=== PATIENT | male | born 1935 | race Caucasian/White ===

== ENCOUNTER 2022-02-05 11:39 | Outpatient (REF) | payer MEDICARE, OTHER, SELFPAY ==
[2022-02-05 13:20] LABS: MANUAL DIFF FLAG NO
[2022-02-05 13:25] LABS: Basophils Absolute Auto 0.1 X10*3/uL (0.0-0.2); Basophils Percent Auto 0.7 % (0-2); Eosinophils Absolute Auto 0.2 X10*3/uL (0.0-0.4); Eosinophils Percent Auto 2.1 % (0-4); Hematocrit 43.3 % (42.0-52.0); Hemoglobin 13.9 g/dl (14.0-18.0); Imm Gran Abs Auto 0.04 X10*3/uL (0.00-0.03); Imm Gran Pct Auto 0.4 % (0.0-0.4); Lymphocytes Absolute Auto 1.2 X10*3/uL (1.2-4.9); Lymphocytes Percent Auto 13.1 % (20-40); Mean Corpuscular HGB Conc 32.1 g/dl (31.0-36.0); Mean Corpuscular Hemoglobin 29.6 pg (27.0-33.0); Mean Corpuscular Volume 92.3 fL (80.0-98.0); Mean Platelet Volume 10.3 fL (9.4-12.4); Monocytes Absolute Auto 0.6 X10*3/uL (0.1-1.2); Monocytes Percent Auto 6.9 % (2-11); Neutrophils Absolute Auto 6.9 x10*3/uL (2.0-8.3); Neutrophils Percent Auto 76.8 % (45-73); Platelet Count 191 X10*3/uL (160-400); Red Blood Count 4.69 X10*6/uL (4.60-5.80); Red Cell Distribution Width 13.7 % (11.0-16.0)
[2022-02-05 13:50] LABS: Alanine Aminotransferase 29 U/L (0-40); Albumin Level 3.9 g/dL (3.5-5.0); Alkaline Phosphatase 49 U/L (39-117); Anion Gap 12 (12-20); Aspartate Amino Transferase 21 U/L (5-37); Bilirubin Total 0.8 mg/dL (0.0-1.0); Blood Urea Nitrogen 31 mg/dL (9-16); Calcium 9.9 mg/dL (8.4-10.2); Carbon Dioxide 31 mmol/L (22-29); Chloride 105 mmol/L (96-108); Estimated Glomerular Filt Rate 35; Glucose Random 87 mg/dL (60-115); Potassium 4.7 mmol/L (3.3-5.1); Sodium 143 mmol/L (135-145); Total Protein 6.5 g/dL (6.5-8.0)
[2022-02-05 14:14] LABS: Prostate Specific Antigen 4.14 ng/mL (<0.05-4.0); Thyroid Stimulating Hormone 0.56 uIU/mL (0.32-4.0); Vitamin D 25-OH Total 56.3 ng/mL (>30)
== END 2022-02-05 11:40 | disposition home or self-care (01) ==
LOC: HO.MANLDS 11:39
PROVIDERS: PCP Internal Medicine; Visit Provider Internal Medicine
DX: Z00.01 Encounter for general adult medical examination with abnormal findings (principal); Z12.5 Encounter for screening for malignant neoplasm of prostate
CPT/HCPCS: 36415; 80053; 82306; 84153; 84443; 85025

== ENCOUNTER → 2023-05-02 09:41 | Outpatient (REF) | payer MEDICARE, OTHER, SELFPAY ==
--- NOTE | 2023-05-02 09:47 | CA_ITS ---
Transthoracic Echocardiogram Patient (Last, First, Middle): Nabeel Winston, Gender: Male Date of : 1935 Age: 88 Procedure Date: 05/02/2023 Procedure Type: Transthoracic Echocardiogram Location: OP Height: 172.72 cm Weight: 77.11 kg BSA: 1.91 m2 Heart Rate: 70 bpm BP: 138 / 80 mmHg Director Talent: SB Referring MD: Yonathan Juarez MD Symptoms: JEFFERY Study Quality: Adequate ECG Rhythm: Sinus Conclusions: - The left ventricular systolic function is low normal. The calculated ejection fraction is 54% by biplane method. - There is mild mitral valve regurgitation. - There is mild calcification of the aortic valve. Findings Left Ventricle Normal left ventricular cavity size. There is normal left ventricular wall thickness. The left ventricular systolic function is low normal. The calculated ejection fraction is 54% by biplane method. There is no evidence of regional wall motion abnormalities. Diastolic function is normal for age. Right Ventricle Normal right ventricular cavity size and systolic function. Atria Both atria are normal in size. Aortic Valve There is a normal trileaflet aortic valve. There is mild calcification of the aortic valve. There is no aortic valve stenosis. There is no aortic valve regurgitation. Mitral Valve The mitral valve appears normal. There is mild mitral valve regurgitation. There is no mitral valve stenosis. Pulmonic Valve The pulmonic valve is likely normal. Tricuspid Valve There is trace tricuspid valve regurgitation. There is no evidence of pulmonary hypertension. Great Vessels The aorta was not well visualized. The sinuses of valsalva is normal in size. Venous The inferior vena cava is normal in size and collapses greater than 50% with inspiration. Pericardium/Pleural There is no evidence of pericardial effusion. Prior Study Comparison No prior study available for comparison. Measurements 2D Linear Measurements IVSd: 0.79 0.6-0.9/0.6-1.0 cm LVIDd: 4.99 3.9-5.3/4.2-5.9 cm LVIDd Index: 2.61 2.4-3.2/2.2-3.1 cm/m2 LVIDs: 3.63 2.0-3.6 cm LVPWd: 0.65 0.7-1.1 cm LA Diam: 3.90 2.7-3.8/3.0-4.0 cm LAIDs Index: 2.04 1.5-2.3 cm/m2 LV Mass: 147.65 67-162/88-224 g LV Mass Index: 77.30 43-95/49-115 g/m2 LVOT Diam: 2.10 3.0+(-)1.3 cm 2D Systolic Function EF 4C: 58.30 >55% EF 2C: 47.90 >55% EF BiP: 53.80 >55% Mitral Valve MV Pk E: 0.62 MV PK A: 0.92 MV Decel Time: 213.00 E/A: 0.70 E'Lateral: 6.31 E'Medial: 5.87 E/E' Med: 10.60 E/E' Lat: 9.80 PHT: 62.00 MVA PHT: 3.55 Decel [place]: 2.92 Aortic Valve AoV Pk Sherif: 1.38 AoV Mn Sherif: 0.99 AoV VTI: 0.27 AoV Pk Grad: 8.00 Aov Mn Grad: 4.00 EVE Cont.VTI: 2.26 LVOT LVOT Pk Sherif: 0.95 LVOT Mn Sherif: 0.65 LVOT VTI: 0.18 LVOT Pk Grad: 4.00 LVOT Mn Grad: 2.00 LVOT Diam: 2.10 LVOT Area: 3.46 Diastolic Function MV Pk E: 0.62 MV Pk A: 0.92 E/A: 0.70 E'Medial: 5.87 E/E' Med: 10.60 E' Laterial: 6.31 E/E' Lat: 9.80 Right Ventricle TAPSE (mm): 21.40 TVS' Sherif: 13.40 Tricuspid Valve TR Pk Sherif: 2.12 TR Pk Grad: 18.00 RA Press: 3.00 RVSP: 21.00 Great Vessels Aorta Sinus of Valsalva: 3.00 2.0-3.5 cm Pulmonary Valve PV Pk Sherif: 0.98 Peak PV Grad: 4.00 Updated in Other Vendor System with Status of Final Umesh Escobar MD electronically signed on 05/03/2023 1:09:28 PM with status of Final
== END ==
LOC: HO.CARD 09:41
PROVIDERS: PCP Internal Medicine; Visit Provider Internal Medicine
DX: R06.09 Other forms of dyspnea (principal)
CPT/HCPCS: 93306

== ENCOUNTER 2024-03-09 15:53 | Outpatient (REF) | payer MEDICARE, SELFPAY ==
[2024-03-09 17:33] LABS: MANUAL DIFF FLAG NO
[2024-03-09 17:39] LABS: Basophils Absolute Auto 0.1 X10*3/uL (0.0-0.2); Basophils Percent Auto 0.6 % (0-2); Eosinophils Absolute Auto 0.6 X10*3/uL (0.0-0.4); Eosinophils Percent Auto 7.1 % (0-4); Hematocrit 41.4 % (42.0-52.0); Hemoglobin 13.5 g/dl (14.0-18.0); Imm Gran Abs Auto 0.03 X10*3/uL (0.00-0.03); Imm Gran Pct Auto 0.3 % (0.0-0.4); Lymphocytes Absolute Auto 0.7 X10*3/uL (1.2-4.9); Lymphocytes Percent Auto 7.5 % (20-40); Mean Corpuscular HGB Conc 32.6 g/dl (31.0-36.0); Mean Corpuscular Hemoglobin 30.3 pg (27.0-33.0); Mean Platelet Volume 10.9 fL (9.4-12.4); Monocytes Absolute Auto 0.3 X10*3/uL (0.1-1.2); Monocytes Percent Auto 3.9 % (2-11); Neutrophils Absolute Auto 7.1 x10*3/uL (2.0-8.3); Neutrophils Percent Auto 80.6 % (45-73); Platelet Count 203 X10*3/uL (160-400); Red Blood Count 4.45 X10*6/uL (4.60-5.80); Red Cell Distribution Width 14.3 % (11.0-16.0); White Blood Count 8.8 X10*3/uL (4.8-10.8)
[2024-03-09 17:52] LABS: Alanine Aminotransferase 18 U/L (0-40); Albumin Level 3.7 g/dL (3.5-5.0); Alkaline Phosphatase 53 U/L (39-117); Anion Gap 15 (12-20); Aspartate Amino Transferase 16 U/L (5-37); Bilirubin Total 0.6 mg/dL (0.0-1.0); Blood Urea Nitrogen 39 mg/dL (9-16); Calcium 9.6 mg/dL (8.4-10.2); Carbon Dioxide 24 mmol/L (22-29); Chloride 105 mmol/L (96-108); Estimated Glomerular Filt Rate 32; Glucose Random 133 mg/dL (60-115); Potassium 4.7 mmol/L (3.3-5.1); Sodium 139 mmol/L (135-145); Total Protein 6.9 g/dL (6.5-8.0)
[2024-03-09 18:10] LABS: Thyroid Stimulating Hormone 0.55 uIU/mL (0.32-4.0)
[2024-03-09 18:18] LABS: Vitamin B12 650 pg/mL (200-900)
[2024-03-09 18:36] LABS: Erythrocyte Sedimentation Rate 23 MM/HR (0-15)
== END 2024-03-09 15:54 | disposition home or self-care (01) ==
LOC: HO.MANLDS 15:53
PROVIDERS: Visit Provider Internal Medicine
DX: N18.9 Chronic kidney disease, unspecified (principal)
CPT/HCPCS: 36415; 80053; 82306; 82607; 84443; 85025; 85652